=== PATIENT | female | born 1970 | race Caucasian/White ===

== ENCOUNTER 2016-09-01 05:41 | Emergency (ER) | payer MEDICAID ==
[2016-09-01] MEDS ORDERED: IBUPROFEN 600 MG TAB PO STA (07:00)
[2016-09-01] MEDS ORDERED: ACETAMINOPHEN TAB 325 MG TAB PO STA (07:00)
[2016-09-01] MEDS ORDERED: MAG HYDROX/AL HYDROX/SIMETH 30 ML CUP PO PRN (07:00)
[2016-09-01] MEDS ORDERED: OSELTAMIVIR 75 MG CAP PO STA (08:11)
[2016-09-01] MEDS ORDERED: DEXAMETHASONE SOD PHOSPHATE 10 MG/ML 1 ML VIAL IM STA (08:12)
--- NOTE | 2016-09-01 08:15 | ED ---
General Adult HPI - General Chief complaint: ENT Stated complaint: ENT/Sore Throat/Ear Pain Time Seen by Provider: 09/01/16 06:44 Source: patient, RN notes reviewed, old records reviewed Mode of arrival: ambulatory Limitations: no limitations - History of Present Illness Initial comments: This is a 46-year-old female here for evaluation of sore throat ear pain and not feeling well. Patient episodic fevers, no significant medical history no sick contacts no known travel history. No modifying factors at home for pain, patient is taking Motrin with mild help. No nausea vomiting diarrhea. The patient denies any other complaints. Patient symptoms for less than 2 days. - Related Data Home Medications Medication Instructions Recorded Confirmed Citalopram Hydrobromide [CeleXA] 20 mg PO HS 06/23/14 09/01/16 Lisinopril [Zestril] 2.5 mg PO HS 06/23/14 09/01/16 Previous Rx's Medication Instructions Recorded Oseltamivir [Tamiflu] 75 mg PO Q12HR #14 cap 09/01/16 Allergies Allergy/AdvReac Type Severity Reaction Status Date / Time lactose Allergy Unknown Abdominal Verified 06/23/14 15:09 Pain, Bloating cephalexin [From Keflex] AdvReac Nausea & Verified 09/01/16 05:55 Vomiting Review of Systems ROS Statement: Those systems with pertinent positive or pertinent negative responses have been documented in the HPI. ROS Other: All systems not noted in ROS Statement are negative. Past Medical History Past Medical History: Hypertension History of Any Multi-Drug Resistant Organisms: None Reported Past Surgical History: Tubal Ligation, Uterine Ablation Past Psychological History: Anxiety Smoking Status: Never smoker Past Alcohol Use History: None Reported Past Drug Use History: None Reported General Exam Limitations: no limitations General appearance: alert, in no apparent distress Head exam: Present: atraumatic, normocephalic, normal inspection Eye exam: Present: normal appearance, PERRL, EOMI. Absent: scleral icterus, conjunctival injection, periorbital swelling ENT exam: Present: normal exam, mucous membranes moist Neck exam: Present: normal inspection. Absent: tenderness, meningismus, lymphadenopathy Respiratory exam: Present: normal lung sounds bilaterally. Absent: respiratory distress, wheezes, rales, rhonchi, stridor Cardiovascular Exam: Present: regular rate, normal rhythm, normal heart sounds. Absent: systolic murmur, diastolic murmur, rubs, gallop, clicks GI/Abdominal exam: Present: soft, normal bowel sounds. Absent: distended, tenderness, guarding, rebound, rigid Extremities exam: Present: normal inspection, full ROM, normal capillary refill. Absent: tenderness, pedal edema, joint swelling, calf tenderness Back exam: Present: normal inspection Neurological exam: Present: alert, oriented X3, CN II-XII intact Psychiatric exam: Present: normal affect, normal mood Skin exam: Present: warm, dry, intact, normal color. Absent: rash Course Vital Signs 09/01/16 05:51 Temperature 99 F Pulse Rate 79 Respiratory 18 Rate Blood Pressure 136/80 O2 Sat by Pulse 98 Oximetry - Reevaluation(s) Reevaluation #1: 09/01/16 08:14 Patient consulted regarding positive flu. Medical Decision Making - Medical Decision Making Or if I female the ER for evaluation of sore throat cough congestion bodyaches fever, patient does have positive influenza otherwise physical exam is negative. Patient will be prescribed some control Motrin Tylenol and Tamiflu. - Lab Data Lab Results 09/01/16 09/01/16 Range/Units 06:05 06:56 Influenza Type A RNA Not Detected (Not Detectd) Influenza Type B (PCR) Detected H (Not Detectd) Group A Strep Rapid Negative (Negative) Disposition Clinical Impression: Influenza B Disposition: HOME SELF-CARE Condition: Good Instructions: Influenza (ED) Prescriptions: Oseltamivir [Tamiflu] 75 mg PO Q12HR #14 cap Referrals: Esperanza Lewis MD [Primary Care Provider] - 1-2 days
[2016-09-01 08:22] VITALS: BP 138/91; PULSE 71; RESP 16; TEMP 98.2
== END 2016-09-01 08:27 | disposition home or self-care (01) ==
LOC: EC 05:41
DX: J10.1 Influenza due to other identified influenza virus with other respiratory manifestations (principal); I10 Essential (primary) hypertension; F41.9 Anxiety disorder, unspecified; Z79.899 Other long term (current) drug therapy; Z88.1 Allergy status to other antibiotic agents; Z91.011 Allergy to milk products
CPT/HCPCS: 87081; 87430; 87502; 99283; 96372; J1100

== ENCOUNTER → 2016-11-30 | Outpatient (CLI) | payer MEDICAID ==
--- NOTE | 2016-11-30 11:18 | US ---
EXAMINATION TYPE: US gallbladder DATE OF EXAM: 11/30/2016 11:06 AM COMPARISON: NONE CLINICAL HISTORY: RUQ Abd Pain R10.11. EXAM MEASUREMENTS: Liver Length: 12.5 cm Gallbladder Wall: 0.2 cm CBD: 0.3 cm Right Kidney: 10.5 X 3.5 X 4.9 cm Pancreas: visualized portions wnl Liver: wnl Gallbladder: 2 polyps seen adhered do wall measuring 0.5 cm each Evidence for sonographic Cole's sign: No CBD: wnl Right Kidney: No hydronephrosis or masses seen IMPRESSION: 1. Echogenic nonmobile structures within the gallbladder most typical of gallbladder polyp. No wall t hickening or pericholecystic fluid.
== END | disposition home or self-care (01) ==
LOC: RADUSWWP 10:42
PROVIDERS: ATTEND Surgery
DX: R93.3 Abnormal findings on diagnostic imaging of other parts of digestive tract (principal); R10.11 Right upper quadrant pain
CPT/HCPCS: 76705

== ENCOUNTER → 2016-12-08 | Outpatient (CLI) | payer MEDICAID ==
--- NOTE | 2016-12-08 15:09 | NM ---
EXAMINATION TYPE: NM hepatobiliary w EF DATE OF EXAM: 12/08/2016 COMPARISON: NONE HISTORY: Right upper quadrant pain TECHNIQUE: After the intravenous administration of 5.5 mCi Tc 99m Mebrofenin hepatobiliary scintigrap hy is performed. Immediate images post injection. FINDINGS: There is satisfactory initial accumulation of tracer by the liver. The gallbladder is visualized wit hin 4 minutes. The small bowel activity was not evident until after the administration of CCK. At on e hour 8 ounces of oral ensure plus is given to mimic CCK and gallbladder ejection fraction is calcul ated at 43 %, in the normal range. Therefore there is no scintigraphic evidence of cystic or common bile duct obstruction to suggest acute cholecystitis or gallbladder dyskinesia. IMPRESSION: AMBIGUOUS EXAMINATION. I COULD NOT EXCLUDE A PARTIAL DISTAL CYSTIC OR COMMON DUCT OBSTRUCTION. ERCP V ERSUS MRCP WOULD BE SUGGESTED.
== END | disposition home or self-care (01) ==
LOC: RADNMMAIN 12:52
PROVIDERS: ATTEND Surgery
DX: R10.11 Right upper quadrant pain (principal); R10.84 Generalized abdominal pain
CPT/HCPCS: 78226; A9537

== ENCOUNTER → 2016-12-19 | Outpatient (CLI) | payer MEDICAID ==
[2016-12-19 13:08] LABS: Basophils # (A) 0.1 k/uL (0-0.2); Basophils % (A) 1 %; CH 29.5; CHCM 33.5; Eosinophils # (A) 0.2 k/uL (0-0.7); Eosinophils % (A) 2 %; HCT 37.1 % (34.0-46.0); HDW 2.34; HGB 12.5 gm/dL (11.4-16.0); Luc # (Auto) 0.21; Luc % (Auto) 2; Lymphocytes # (A) 2.4 k/uL (1.0-4.8); Lymphocytes % (A) 28 %; MCH 29.8 pg (25.0-35.0); MCHC 33.8 g/dL (31.0-37.0); MCV 88.4 fL (80.0-100.0); Mean Platelet Volume 6.9; Monocytes # (A) 0.5 k/uL (0-1.0); Monocytes % (A) 6 %; Neutrophils # (A) 5.3 k/uL (1.3-7.7); Neutrophils % (A) 61 %; RDW 13.6 % (11.5-15.5); WBC 8.7 k/uL (3.8-10.6); WBC (Perox) 9.21
[2016-12-19 13:24] LABS: ALT 75 U/L (9-52); AST 37 U/L (14-36); Alkaline Phosphatase 141 U/L (38-126); Amylase 55 U/L (30-110); Anion Gap 12 mmol/L; Blood Urea Nitrogen 14 mg/dL (7-17); Calcium 9.7 mg/dL (8.4-10.2); Carbon Dioxide 25 mmol/L (22-30); Chloride 106 mmol/L (98-107); Glucose 91 mg/dL (74-99); Non-African American GFR(MDRD) >60 (>60 ml/min/1.73 sqM); Potassium 3.9 mmol/L (3.5-5.1); Sodium 143 mmol/L (137-145); Total Bilirubin 0.5 mg/dL (0.2-1.3); Total Protein 7.8 g/dL (6.3-8.2)
== END | disposition home or self-care (01) ==
LOC: LABWHC1 12:56
PROVIDERS: ATTEND Surgery
DX: R10.9 Unspecified abdominal pain (principal)
CPT/HCPCS: 36415; 80053; 82150; 83690; 85025

== ENCOUNTER → 2017-08-02 | Outpatient (CLI) | payer MEDICAID ==
[2017-08-02 09:15] LABS: ALT 37 U/L (9-52); AST 18 U/L (14-36); Albumin 4.1 g/dL (3.5-5.0); Alkaline Phosphatase 113 U/L (38-126); Anion Gap 11 mmol/L; Blood Urea Nitrogen 10 mg/dL (7-17); Calcium 9.5 mg/dL (8.4-10.2); Carbon Dioxide 25 mmol/L (22-30); Chloride 107 mmol/L (98-107); Cholesterol 214 mg/dL (<200); Glucose 104 mg/dL (74-99); HDL Cholesterol 50 mg/dL (40-60); LDL Cholesterol,Calculated 137 mg/dL (0-99); Potassium 4.2 mmol/L (3.5-5.1); Sodium 143 mmol/L (137-145); Total Bilirubin 0.3 mg/dL (0.2-1.3); Total Protein 7.2 g/dL (6.3-8.2); Triglycerides 137 mg/dL (<150)
[2017-08-02 09:17] LABS: T4, Free (Free Thyroxine) 0.78 ng/dL (0.78-2.19)
[2017-08-02 09:19] LABS: Basophils # (A) 0.1 k/uL (0-0.2); Basophils % (A) 1 %; Eosinophils # (A) 0.1 k/uL (0-0.7); Eosinophils % (A) 1 %; HCT 40.1 % (34.0-46.0); Lymphocytes # (A) 2.3 k/uL (1.0-4.8); Lymphocytes % (A) 21 %; MCH 28.7 pg (25.0-35.0); MCHC 32.5 g/dL (31.0-37.0); MCV 88.3 fL (80.0-100.0); Mean Platelet Volume 7.5; Monocytes # (A) 0.5 k/uL (0-1.0); Monocytes % (A) 5 %; Neutrophils # (A) 7.9 k/uL (1.3-7.7); Neutrophils % (A) 71 %; Platelet Count 421 k/uL (150-450); RBC 4.54 m/uL (3.80-5.40); RDW 12.8 % (11.5-15.5)
[2017-08-02 16:39] LABS: Vitamin D 25 Hydroxy 11.2 ng/mL (30.0-100.0)
== END | disposition home or self-care (01) ==
LOC: LABWHC1 07:59
PROVIDERS: ATTEND Family Medicine
DX: E55.9 Vitamin D deficiency, unspecified (principal); I10 Essential (primary) hypertension; Z13.220 Encounter for screening for lipoid disorders
CPT/HCPCS: 36415; 80053; 80061; 82306; 82607; 84439; 84443; 85025

== ENCOUNTER → 2017-09-22 | Outpatient (CLI) | payer MEDICAID ==
[2017-09-22 07:41] LABS: Basophils # (A) 0.1 k/uL (0-0.2); Basophils % (A) 1 %; Eosinophils # (A) 0.2 k/uL (0-0.7); Eosinophils % (A) 3 %; HCT 35.6 % (34.0-46.0); HGB 11.9 gm/dL (11.4-16.0); Lymphocytes # (A) 2.3 k/uL (1.0-4.8); Lymphocytes % (A) 33 %; MCH 28.2 pg (25.0-35.0); MCHC 33.4 g/dL (31.0-37.0); MCV 84.5 fL (80.0-100.0); Monocytes # (A) 0.4 k/uL (0-1.0); Monocytes % (A) 5 %; Neutrophils # (A) 3.9 k/uL (1.3-7.7); Neutrophils % (A) 56 %; Platelet Count 444 k/uL (150-450); RBC 4.21 m/uL (3.80-5.40); RDW 12.9 % (11.5-15.5)
[2017-09-22 08:54] LABS: Anion Gap 8 mmol/L; Blood Urea Nitrogen 14 mg/dL (7-17); Calcium 9.9 mg/dL (8.4-10.2); Carbon Dioxide 27 mmol/L (22-30); Chloride 107 mmol/L (98-107); Glucose 104 mg/dL (74-99); Magnesium 1.9 mg/dL (1.6-2.3); Potassium 4.6 mmol/L (3.5-5.1); Sodium 142 mmol/L (137-145)
[2017-09-22 11:36] LABS: Iron Saturation 28.97 (12.00-45.00); Protein, Total 6.9 g/dL (6.2-8.2)
[2017-09-22 11:55] LABS: Progesterone 0.3 ng/mL; Thyroid Peroxidase Antibodies <28.0 U/mL (0.0-60.0)
[2017-09-26 09:56] LABS: Albumin 4.23 g/dL (3.80-4.90); Gamma Globulin 0.93 g/dL (0.70-1.50)
== END | disposition home or self-care (01) ==
LOC: LABWHC1 06:58
PROVIDERS: ATTEND Family Medicine
DX: J01.00 Acute maxillary sinusitis, unspecified (principal); R53.82 Chronic fatigue, unspecified
CPT/HCPCS: 36415; 80048; 82533; 82626; 83001; 83002; 83036; 83540; 83550; 83735; 84144; 84165; 84443; 84480; 85025; 86376

== ENCOUNTER → 2017-10-11 | Outpatient (CLI) | payer MEDICAID ==
--- NOTE | 2017-10-11 08:18 | MM ---
Reason for exam: screening (asymptomatic). Baseline mammogram. History: Patient is postmenopausal. Took hormonal contraceptives for 6 months beginning at age 19. Physical Findings: Nurse did not find any significant physical abnormalities on exam. MG 3D Screening Mammo W/Cad Bilateral CC and MLO view(s) were taken. The breast tissue is heterogeneously dense. This may lower the sensitivity of mammography. There is no discrete abnormality. These results were verbally communicated with the patient and result sheet given to the patient on 10/11/17. ASSESSMENT: Negative, BI-RAD 1 RECOMMENDATION: Routine screening mammogram of both breasts in 1 year.
== END | disposition home or self-care (01) ==
LOC: RADMAMWWP 06:44
PROVIDERS: ATTEND Family Medicine
DX: Z12.31 Encounter for screening mammogram for malignant neoplasm of breast (principal)
CPT/HCPCS: 77063; 77067

== ENCOUNTER 2018-08-31 06:47 | Inpatient (IN) | payer MEDICAID ==
[2018-08-31] MEDS ORDERED: HYDROmorphone 0.5 MG/0.5 ML SYRINGE IVP STA (07:12)
[2018-08-31] MEDS ORDERED: SODIUM CHLORIDE 0.9% 500 ML 500 ML IV STA (07:12)
[2018-08-31] MEDS: ONDANSETRON 4 MG/2 ML VIAL IVP STA (07:29)
--- NOTE | 2018-08-31 07:29 | ED ---
General Adult HPI - General Chief complaint: Abdominal Pain Stated complaint: Abd Pain Source: patient, RN notes reviewed Mode of arrival: ambulatory Limitations: no limitations - History of Present Illness Initial comments: This is a 48-year-old female who presents to the emergency department complaining of epigastric and right upper quadrant pain. Patient states she's had issues with her gallbladder in the past but this morning was the worst pain she's had in that area. Patient states she started drinking coffee and that seemed to set off the pain. Patient states she was nauseated but did not vomit. Patient denies any recent fever chills. Patient denies any lower abdominal pain. Patient denies chest pain difficulty breathing first breath. Patient states currently the pain is still there but it has subsided to some degree. Denies any radiation of pain to the back. - Related Data Home Medications Medication Instructions Recorded Confirmed Ibuprofen [Motrin] 800 mg PO TID PRN 08/31/18 08/31/18 Lisinopril [Zestril] 10 mg PO HS 08/31/18 08/31/18 Allergies Allergy/AdvReac Type Severity Reaction Status Date / Time lactose AdvReac Unknown Abdominal Verified 08/31/18 07:35 Pain, Bloating cephalexin [From Keflex] AdvReac Nausea & Verified 08/31/18 07:35 Vomiting Review of Systems ROS Statement: Those systems with pertinent positive or pertinent negative responses have been documented in the HPI. ROS Other: All systems not noted in ROS Statement are negative. Past Medical History Past Medical History: Hypertension History of Any Multi-Drug Resistant Organisms: None Reported Past Surgical History: Tubal Ligation, Uterine Ablation Past Psychological History: Anxiety Smoking Status: Never smoker Past Alcohol Use History: None Reported Past Drug Use History: None Reported General Exam - General Exam Comments Initial Comments: GENERAL: Patient is well-developed and well-nourished. Patient is nontoxic and well- hydrated and is in mild distress. ENT: Neck is soft and supple. No significant lymphadenopathy is noted. Oropharynx is clear. Moist mucous membranes. Neck has full range of motion without eliciting any pain. EYES: The sclera were anicteric and conjunctiva were pink and moist. Extraocular movements were intact and pupils were equal round and reactive to light. Eyelids were unremarkable. PULMONARY: Unlabored respirations. Good breath sounds bilaterally. No audible rales rhonchi or wheezing was noted. CARDIOVASCULAR: There is a regular rate and rhythm without any murmurs gallops or rubs. ABDOMEN: Patient has tenderness and right upper quadrant. No rebound. SKIN: Skin is clear with no lesions or rashes and otherwise unremarkable. NEUROLOGIC: Patient is alert and oriented x3. Cranial nerves II through XII are grossly intact. Motor and sensory are also intact. Normal speech, volume and content. Symmetrical smile. MUSCULOSKELETAL: Normal extremities with adequate strength and full range of motion. No lower extremity swelling or edema. No calf tenderness. LYMPHATICS: No significant lymphadenopathy is noted PSYCHIATRIC: Normal psychiatric evaluation. Limitations: no limitations Course Vital Signs 08/31/18 06:48 Temperature 97.5 F L Pulse Rate 79 Respiratory 16 Rate Blood Pressure 139/89 O2 Sat by Pulse 100 Oximetry Medical Decision Making - Medical Decision Making Patient had Dilaudid and Zofran in the emergency department and after administration I reevaluated the patient and she was feeling considerably better. Patient's liver enzymes were mildly elevated. Patient cannot fully better showed a polyp and some adenomyomatosis. I spoke with Dr. Llamas he agreed to accept the patient as an admission I wrote admitting orders. - Lab Data Result diagrams: 08/31/18 07:05 08/31/18 07:05 Lab Results 08/31/18 08/31/18 08/31/18 Range/Units 07:05 07:05 07:05 WBC 10.3 (3.8-10.6) k/uL RBC 4.28 (3.80-5.40) m/uL Hgb 12.5 (11.4-16.0) gm/dL Hct 38.0 (34.0-46.0) % MCV 88.7 (80.0-100.0) fL MCH 29.2 (25.0-35.0) pg MCHC 32.9 (31.0-37.0) g/dL RDW 13.8 (11.5-15.5) % Plt Count 470 H (150-450) k/uL Neutrophils % 64 % Lymphocytes % 26 % Monocytes % 5 % Eosinophils % 3 % Basophils % 1 % Neutrophils # 6.6 (1.3-7.7) k/uL Lymphocytes # 2.7 (1.0-4.8) k/uL Monocytes # 0.5 (0-1.0) k/uL Eosinophils # 0.3 (0-0.7) k/uL Basophils # 0.1 (0-0.2) k/uL Sodium 142 (137-145) mmol/L Potassium 4.1 (3.5-5.1) mmol/L Chloride 107 (98-107) mmol/L Carbon Dioxide 25 (22-30) mmol/L Anion Gap 10 mmol/L BUN 11 (7-17) mg/dL Creatinine 0.72 (0.52-1.04) mg/dL Est GFR (CKD-EPI)AfAm >90 (>60 ml/min/1.73 sqM) Est GFR (CKD-EPI)NonAf >90 (>60 ml/min/1.73 sqM) Glucose 113 H (74-99) mg/dL Calcium 9.7 (8.4-10.2) mg/dL Total Bilirubin 0.5 (0.2-1.3) mg/dL AST 41 H (14-36) U/L ALT 68 H (9-52) U/L Alkaline Phosphatase 142 H (38-126) U/L Total Protein 7.7 (6.3-8.2) g/dL Albumin 4.5 (3.5-5.0) g/dL Amylase 61 (30-110) U/L Lipase 100 (23-300) U/L Urine Color Yellow Urine Appearance Clear (Clear) Urine pH 5.5 (5.0-8.0) Ur Specific [place] 1.018 (1.001-1.035) Urine Protein Negative (Negative) Urine Glucose (UA) Negative (Negative) Urine Ketones Negative (Negative) Urine Blood Negative (Negative) Urine Nitrite Negative (Negative) Urine Bilirubin Negative (Negative) Urine Urobilinogen <2.0 (<2.0) mg/dL Ur Leukocyte Esterase Negative (Negative) Disposition Clinical Impression: Biliary colic Disposition: ADMITTED IP TO THIS HOSP Referrals: Esperanza Lewis MD [Primary Care Provider] - 1-2 days Time of Disposition: 08:56
[2018-08-31 07:34] LABS: Basophils # (A) 0.1 k/uL (0-0.2); Basophils % (A) 1 %; Eosinophils # (A) 0.3 k/uL (0-0.7); Eosinophils % (A) 3 %; HGB 12.5 gm/dL (11.4-16.0); Lymphocytes # (A) 2.7 k/uL (1.0-4.8); Lymphocytes % (A) 26 %; MCH 29.2 pg (25.0-35.0); MCHC 32.9 g/dL (31.0-37.0); MCV 88.7 fL (80.0-100.0); Mean Platelet Volume 7.3; Monocytes # (A) 0.5 k/uL (0-1.0); Monocytes % (A) 5 %; Neutrophils # (A) 6.6 k/uL (1.3-7.7); Neutrophils % (A) 64 %; Platelet Count 470 k/uL (150-450); RBC 4.28 m/uL (3.80-5.40); RDW 13.8 % (11.5-15.5); WBC 10.3 k/uL (3.8-10.6)
[2018-08-31 07:36] LABS: Appearance,Urine Clear (Clear); Bilirubin,Urine Negative (Negative); Blood,Urine Negative (Negative); Color,Urine Yellow; Glucose,Urine (UA) Negative (Negative); Ketones,Urine Negative (Negative); Leukocyte Esterase,Urine Negative (Negative); Nitrite,Urine Negative (Negative); PH, Urine 5.5 (5.0-8.0); Protein,Urine Negative (Negative); Specific Gravity,Urine 1.018 (1.001-1.035); Urobilinogen,Urine <2.0 mg/dL (<2.0)
[2018-08-31 07:48] LABS: ALT 68 U/L (9-52); AST 41 U/L (14-36); Albumin 4.5 g/dL (3.5-5.0); Alkaline Phosphatase 142 U/L (38-126); Amylase 61 U/L (30-110); Anion Gap 10 mmol/L; Blood Urea Nitrogen 11 mg/dL (7-17); Calcium 9.7 mg/dL (8.4-10.2); Carbon Dioxide 25 mmol/L (22-30); Chloride 107 mmol/L (98-107); Glucose 113 mg/dL (74-99); Lipase 100 U/L (23-300); Potassium 4.1 mmol/L (3.5-5.1); Sodium 142 mmol/L (137-145); Total Bilirubin 0.5 mg/dL (0.2-1.3); Total Protein 7.7 g/dL (6.3-8.2)
--- NOTE | 2018-08-31 08:43 | US ---
EXAMINATION TYPE: US gallbladder DATE OF EXAM: 08/31/2018 COMPARISON: EXAMINATION TYPE: US gallbladder DATE OF EXAM: 08/31/2018 COMPARISON: 11/30/2016 CLINICAL HISTORY: Pain. unable to eat or drink due to pain, known polyps EXAM MEASUREMENTS: Liver Length: 14.4 cm Gallbladder Wall: 0.2 cm CBD: 0.5 cm Right Kidney: 10.6 x 4.7 x 4.0 cm Pancreas: wnl Liver: There is increased echogenicity of the hepatic parenchyma with diminished visualization of th e portal triads most commonly relating to hepatic steatosis and limiting evaluation for underlying he patic masses. Gallbladder: multiple polyps seen with two areas of vague comet tail artifact which may represent ad enomyomatosis Evidence for sonographic Cole's sign: no CBD: wnl Right Kidney: wnl IMPRESSION: 1. Redemonstration of a subcentimeter nondependent nondependent gallbladder polyp as seen on the exam of 2016 with additional findings of likely diffuse adenomyomatosis. 2. No sonographic evidence of acute cholecystitis. 3. Findings most suggestive of hepatic steatosis overall appearing moderate in degree.
[2018-08-31] MEDS ORDERED: SODIUM CHLORIDE 0.9% 1,000 ML IV ONE (08:58)
[2018-08-31] MEDS ORDERED: ONDANSETRON 4 MG/2 ML VIAL IVP PRN (08:59)
[2018-08-31 09:32] VITALS: BMI 29.7
[2018-08-31 09:50] VITALS: RESP 16
[2018-08-31] MEDS ORDERED: NALOXONE 0.4 MG/ML 1 ML VIAL IV PRN (10:11)
--- NOTE | 2018-08-31 10:48 | P.GSHP ---
History of Present Illness H&P Date: 08/31/18 Chief Complaint: Abdominal pain 48-year-old female comes to the ER today with recurrent complaints of epigastric and right upper quadrant pain. Pain radiates to the back. Some nausea. She has had episodes like this in the past. Today's labs show slightly elevated liver enzymes. Ultrasound shows filling defects within the gallbladder described as probable polyps. Patient has a strong family history of gallbladder disease. Describes her urine being slightly darker. No yellow skin or yellow eyes. Patient's previous workup included ultrasound and HIDA scan. HIDA scan was normal when checked previously. - Review of Systems Comment: The patient denies any acute changes in vision or hearing, no dysphagia or odynophagia, no chest pain or shortness of breath, no dysuria or hematuria, no headache, no runny nose, no rectal bleeding or melena, no unexplained weight loss Past Medical History Past Medical History: Asthma, GERD/Reflux, Hypertension Additional Past Medical History / Comment(s): Gallbladder polyps, current sinus infection-was to start antibiotics, vertigo, anemia History of Any Multi-Drug Resistant Organisms: None Reported Past Surgical History: Tubal Ligation, Uterine Ablation Past Anesthesia/Blood Transfusion Reactions: No Reported Reaction Smoking Status: Never smoker - Past Family History Father Family Medical History: Hypertension Mother Additional Family Medical History / Comment(s): Mother had gallstones. Gallbladder disease runs on mother's side of family. Medications and Allergies Home Medications Medication Instructions Recorded Confirmed Type Ibuprofen [Motrin] 800 mg PO TID PRN 08/31/18 08/31/18 History Lisinopril [Zestril] 10 mg PO HS 08/31/18 08/31/18 History Allergies Allergy/AdvReac Type Severity Reaction Status Date / Time lactose AdvReac Unknown Abdominal Verified 08/31/18 07:35 Pain, Bloating cephalexin [From Keflex] AdvReac Nausea & Verified 08/31/18 07:35 Vomiting Surgical - Exam Vital Signs Temp Pulse Resp BP Pulse Ox 97.5 F L 79 16 139/89 100 08/31/18 06:48 08/31/18 06:48 08/31/18 06:48 08/31/18 06:48 08/31/18 06:48 Physical exam: General: Well-developed, well-nourished HEENT: Normocephalic, sclerae nonicteric Abdomen: Mild epigastric and right upper quadrant tenderness, nondistended Extremities: No edema Neuro: Alert and oriented Results - Labs 08/31/18 07:05 08/31/18 07:05 Abnormal Lab Results - Last 24 Hours (Table) 08/31/18 08/31/18 Range/Units 07:05 07:05 Plt Count 470 H (150-450) k/uL Glucose 113 H (74-99) mg/dL AST 41 H (14-36) U/L ALT 68 H (9-52) U/L Alkaline Phosphatase 142 H (38-126) U/L Diabetes panel 08/31/18 Range/Units 07:05 Sodium 142 (137-145) mmol/L Potassium 4.1 (3.5-5.1) mmol/L Chloride 107 (98-107) mmol/L Carbon Dioxide 25 (22-30) mmol/L BUN 11 (7-17) mg/dL Creatinine 0.72 (0.52-1.04) mg/dL Glucose 113 H (74-99) mg/dL Calcium 9.7 (8.4-10.2) mg/dL AST 41 H (14-36) U/L ALT 68 H (9-52) U/L Alkaline Phosphatase 142 H (38-126) U/L Total Protein 7.7 (6.3-8.2) g/dL Albumin 4.5 (3.5-5.0) g/dL Calcium panel 08/31/18 Range/Units 07:05 Calcium 9.7 (8.4-10.2) mg/dL Albumin 4.5 (3.5-5.0) g/dL Pituitary panel 08/31/18 Range/Units 07:05 Sodium 142 (137-145) mmol/L Potassium 4.1 (3.5-5.1) mmol/L Chloride 107 (98-107) mmol/L Carbon Dioxide 25 (22-30) mmol/L BUN 11 (7-17) mg/dL Creatinine 0.72 (0.52-1.04) mg/dL Glucose 113 H (74-99) mg/dL Calcium 9.7 (8.4-10.2) mg/dL Adrenal panel 08/31/18 Range/Units 07:05 Sodium 142 (137-145) mmol/L Potassium 4.1 (3.5-5.1) mmol/L Chloride 107 (98-107) mmol/L Carbon Dioxide 25 (22-30) mmol/L BUN 11 (7-17) mg/dL Creatinine 0.72 (0.52-1.04) mg/dL Glucose 113 H (74-99) mg/dL Calcium 9.7 (8.4-10.2) mg/dL Total Bilirubin 0.5 (0.2-1.3) mg/dL AST 41 H (14-36) U/L ALT 68 H (9-52) U/L Alkaline Phosphatase 142 H (38-126) U/L Total Protein 7.7 (6.3-8.2) g/dL Albumin 4.5 (3.5-5.0) g/dL Assessment and Plan (1) Biliary colic Narrative/Plan: Clinical scenario discussed in detail with the patient. Suspect probable chronic cholecystitis. Will check repeat labs tomorrow morning. If liver enzymes increase further Will consider MRCP. If liver enzymes status same or decreased Will proceed with laparoscopic cholecystectomy tomorrow at 10 AM. Risks of bleeding, infection, bile leak, bile duct injury, retained common bile duct stone, trocar injury, conversion to an open procedure, hernia, anesthesia related complications were reviewed. The patient understands and wishes to proceed. Current Visit: Yes Status: Acute Code(s): K80.50 - CALCULUS OF BILE DUCT W/ O CHOLANGITIS OR CHOLECYST W/O OBST SNOMED Code(s): 79486032
[2018-08-31] MEDS: HYDROmorphone 0.5 MG/0.5 ML SYRINGE IVP PRN ×2 (13:04→19:16)
[2018-08-31] MEDS: LEVOFLOXACIN 500MG-D5W PMX 500 MG in DEXTROSE/WATER 1 100ML.BAG IVPB SCH (13:04)
[2018-08-31] MEDS: HEPARIN SODIUM,PORCINE 5,000 UNIT/ML 1 ML VIAL SQ SCH ×2 (16:39→23:14)
[2018-08-31] MEDS: LISINOPRIL 10 MG TAB PO SCH (19:55)
--- NOTE | 2018-08-31 20:09 | P.CONS ---
History of Present Illness - Reason for Consult Consult date: 08/31/18 Medical management Requesting physician: Kush Tavarez - Chief Complaint Severe abdominal pain, cholecystitis and biliary colic, nausea vomiting, hy - History of Present Illness 48-year-old female one of Dr. Lewis's patient with past medical history of asthma, hypertension, history of chronic gallbladder, history of GERD who presented to [facility] this morning with acute episode of midepigastric pain and right upper quadrant discomfort after she had couple of coffee in the morning become much worse was associated with nausea and vomiting her pain is radiating to the back. Patient is known to have chronic history of gallbladder and had seen Dr. pena in the past was planning to do elective surgery as an outpatient. A Chin ended up coming to [facility] department found to have significant elevated liver function tests and finding on ultrasound with possible polyp in the gallbladder versus stone with the possibility of ascending cholangitis as well. Patient was started on hydration, antiarrhythmic medication, levofloxacin IV to protect ascending cholangitis and was admitted to the hospital seen Dr. pena. The plan was if repeat liver function test in 24 hours shows improve symptoms patient might go for gallbladder surgery otherwise if worsening symptoms she might require to have an MRCP or ERCP to exclude any stone in the common duct or any obstruction might require further attention. Review of Systems CONSTITUTIONAL: Well-developed no acute respiratory distress. EYES: No icterus sclerae, no conjunctivitis. EARS, NOSE, MOUTH, THROAT, and FACE: No sore throat, lymphadenopathy, carotid bruits or deformity. RESPIRATORY: No SOB cough or wheezes. CARDIOVASCULAR: No CP, Palpitation, PND, Orthopnea, or angina. GASTROINTESTINAL: Positive abdominal pain with nausea and vomiting. GENITOURINARY: Negative for Hematuria or UTI, no kidney stones. INTEGUMENT/BREAST: Negative for any muscular injury with mild osteoarthritis.. HEMATOLOGIC/LYMPHATIC: Negative for bleed or purpura. MUSCULOSKELTAL: Negative for Myalgia or arthralgia. NEURLOGICAL: No LOC, Sz or syncope, blurred vision dizziness or abnormality.. BEHAVIORAL/PSYCH: Negative. ENDOCRINE: Negative. Past Medical History Past Medical History: Asthma, GERD/Reflux, Hypertension Additional Past Medical History / Comment(s): Gallbladder polyps, current sinus infection-was to start antibiotics, vertigo, anemia History of Any Multi-Drug Resistant Organisms: None Reported Past Surgical History: Tubal Ligation, Uterine Ablation Past Anesthesia/Blood Transfusion Reactions: No Reported Reaction Smoking Status: Never smoker - Past Family History Father Family Medical History: Hypertension Mother Additional Family Medical History / Comment(s): Mother had gallstones. Gallbladder disease runs on mother's side of family. Medications and Allergies Home Medications Medication Instructions Recorded Confirmed Type Ibuprofen [Motrin] 800 mg PO TID PRN 08/31/18 08/31/18 History Lisinopril [Zestril] 10 mg PO HS 08/31/18 08/31/18 History Allergies Allergy/AdvReac Type Severity Reaction Status Date / Time lactose AdvReac Unknown Abdominal Verified 08/31/18 07:35 Pain, Bloating cephalexin [From Keflex] AdvReac Nausea & Verified 08/31/18 07:35 Vomiting Physical Exam Vitals: Vital Signs Temp Pulse Pulse Resp BP BP Pulse Ox 08/31/18 14:27 98.0 F 84 16 111/73 98 08/31/18 09:49 97.6 F 68 16 145/97 100 08/31/18 09:27 73 18 101/65 100 08/31/18 06:48 97.5 F L 79 16 139/89 100 Intake and Output 08/31/18 08/31/18 08/31/18 06:59 14:59 22:59 Intake Total 240 Output Total 1 Balance -1 240 Intake: Oral 240 Output: Urine 1 Other: Voiding Method Toilet Weight 68.946 kg General Appearance: Alert, cooperative, no distress, appears stated age. Neck HEENT: Supple, no lymphadenopathy, no thyroid enlargement, no carotid bruits. Lungs: Clear to auscultation without crackles or wheezes no rhonchi, no deformity. Chest Wall: Chest wall normal expansion with deep inspiration no tenderness and no deformity was found on exam, no costochondral pain or discomfort. Heart: Regular rate and rhythm, S1, S2 normal, no murmur, rub or gallop. Back: Symmetric, no curvature, ROM normal, no CVA tenderness. Abdomen: Soft positive tenderness in the right upper quadrant and midepigastric area with no rebound or rigidity no hepatosplenomegaly. Extremities: Extremities normal, atraumatic, no cyanosis or edema. Pulses: 2+ and symmetric. Skin: Skin color, texture, tugor normal, no rashes or lesions. Neurologic: Alert oriented x3 cranial nerves II through XII intact, no motor deficit, no abnormal balance or gait. Results CBC & Chem 7: 08/31/18 07:05 08/31/18 07:05 Labs: Abnormal Lab Results - Last 24 Hours (Table) 08/31/18 08/31/18 Range/Units 07:05 07:05 Plt Count 470 H (150-450) k/uL Glucose 113 H (74-99) mg/dL AST 41 H (14-36) U/L ALT 68 H (9-52) U/L Alkaline Phosphatase 142 H (38-126) U/L Assessment and Plan Plan: 1 acute severe abdominal pain: With acute biliary colic and possible ascending cholangitis, patient was admitted to the hospital continue levofloxacin continue hydration pain management and anti-medic medication. If worsening symptoms or higher liver function tests might require to go for an MRCP or ERCP otherwise if her enzymes are better patient might go for gallbladder surgery tomorrow. 2 acute cholecystitis: Pending surgery depending on the progression in the next 24 hours. 3 ascending cholangitis: Was started on levofloxacin CBC and continue to watch for any other sign of infection such as fever chills are worsening leukocytosis. 4 hypertension: Resume lisinopril at 10 mg daily. 5 severe GERD/GI prophylaxis: Patient was started on pantoprazole 40 mg daily. DVT prophylaxis: Patient will be on heparin 5000 units subcutaneous twice a day. CODE STATUS: Full code. Dr. tavarez thank you very much for the consult psych can be any further help to please let me know.
[2018-09-01 07:34] LABS: Basophils # (A) 0.1 k/uL (0-0.2); Basophils % (A) 1 %; Eosinophils # (A) 0.2 k/uL (0-0.7); Eosinophils % (A) 2 %; HCT 35.2 % (34.0-46.0); Lymphocytes # (A) 1.9 k/uL (1.0-4.8); Lymphocytes % (A) 29 %; MCH 28.1 pg (25.0-35.0); MCHC 31.4 g/dL (31.0-37.0); MCV 89.7 fL (80.0-100.0); Mean Platelet Volume 7.2; Monocytes # (A) 0.4 k/uL (0-1.0); Monocytes % (A) 5 %; Neutrophils % (A) 61 %; Platelet Count 391 k/uL (150-450); RBC 3.93 m/uL (3.80-5.40); WBC 6.5 k/uL (3.8-10.6)
[2018-09-01] MEDS ORDERED: LIDOCAINE 1% 20 ML VIAL (10MG/ML) FOR IV START INTRADERMA PRN (07:34)
[2018-09-01] MEDS ORDERED: MIDAZOLAM (PF) 2 MG/2 ML VIAL IV PRN (07:34)
[2018-09-01] MEDS ORDERED: DEXAMETHASONE SOD PHOSPHATE 10 MG/ML 1 ML VIAL IV ONE (07:34)
[2018-09-01] MEDS: HYDROmorphone 0.5 MG/0.5 ML SYRINGE IVP PRN ×7 (07:49→23:19)
[2018-09-01] MEDS: PANTOPRAZOLE 40 MG/10 ML VIAL IV SCH (07:49)
[2018-09-01 07:55] LABS: ALT 64 U/L (9-52); AST 29 U/L (14-36); Albumin 3.6 g/dL (3.5-5.0); Alkaline Phosphatase 120 U/L (38-126); Anion Gap 4 mmol/L; Blood Urea Nitrogen 6 mg/dL (7-17); Calcium 9.4 mg/dL (8.4-10.2); Carbon Dioxide 28 mmol/L (22-30); Chloride 109 mmol/L (98-107); Glucose 111 mg/dL (74-99); Lipase 51 U/L (23-300); Potassium 4.6 mmol/L (3.5-5.1); Sodium 141 mmol/L (137-145); Total Bilirubin 0.5 mg/dL (0.2-1.3); Total Protein 6.5 g/dL (6.3-8.2)
[2018-09-01] MEDS: HEPARIN SODIUM,PORCINE 5,000 UNIT/ML 1 ML VIAL SQ SCH ×3 (08:17→23:20)
[2018-09-01] MEDS ORDERED: LACTATED RINGERS 1,000 ML IV ONE (10:00)
[2018-09-01] MEDS: ONDANSETRON 4 MG/2 ML VIAL IVP STA (10:13)
--- NOTE | 2018-09-01 10:27 | P.PN ---
Progress Note - Text Progress Note Date: 09/01/18 Patient seen today. Liver enzymes all improved. Pain is slightly improved as well. Will proceed with cholecystectomy. Suspect possible choledocholithiasis. Patient agreeable to proceeding with surgery.
[2018-09-01] MEDS ORDERED: ROCURONIUM BROMIDE 10 MG/ML 10 ML VIAL IV ONE (11:40)
[2018-09-01] MEDS ORDERED: GLYCOPYRROLATE 0.2 MG/ML 2 ML VIAL ONE (11:40)
[2018-09-01] MEDS ORDERED: NEOSTIGMINE 1 MG/ML 10 ML VIAL ONE (11:40)
[2018-09-01] MEDS ORDERED: LIDOCAINE 1% INJ 10MG/ML (20 ML MDV) ONE (11:40)
[2018-09-01] MEDS ORDERED: fentaNYL (PF) 50 MCG/ML 2 ML AMP ONE (11:40)
[2018-09-01] MEDS ORDERED: PROPOFOL 10 MG/ML 20 ML VIAL IV ONE (11:40)
[2018-09-01] MEDS ORDERED: BUPIVACAINE (PF) 0.25% 30 ML VIAL SQ ONE (12:04)
--- NOTE | 2018-09-01 12:09 | P.PN ---
Subjective Progress Note Date: 09/01/18 48-year-old female one of Dr. Lewis's patient with past medical history of asthma, hypertension, history of chronic gallbladder, history of GERD who presented to [facility] this morning with acute episode of midepigastric pain and right upper quadrant discomfort after she had couple of coffee in the morning become much worse was associated with nausea and vomiting her pain is radiating to the back. Patient is known to have chronic history of gallbladder and had seen Dr. pena in the past was planning to do elective surgery as an outpatient. A Chin ended up coming to [facility] department found to have significant elevated liver function tests and finding on ultrasound with possible polyp in the gallbladder versus stone with the possibility of ascending cholangitis as well. Patient was started on hydration, antiarrhythmic medication, levofloxacin IV to protect ascending cholangitis and was admitted to the hospital seen Dr. pena. The plan was if repeat liver function test in 24 hours shows improve symptoms patient might go for gallbladder surgery otherwise if worsening symptoms she might require to have an MRCP or ERCP to exclude any stone in the common duct or any obstruction might require further attention. 09/01: Patient is up in the room per self. Patient states that the discomfort has improved since yesterday. Liver enzymes have improved. Patient is scheduled for cholecystectomy possibly today. Patient is agreeable with the outlined plan. Patient still has some tenderness in the upper right quadrant. WC 6.5, hemoglobin 11, sodium 141, potassium 4.6, chloride 109, BUN 6, creatinine 0.68, bilirubin 0.5, AST 29, ALTs 64, a alkaline phosphatase 120 lipase 51. Review of Systems CONSTITUTIONAL: Well-developed no acute respiratory distress. EYES: No icterus sclerae, no conjunctivitis. EARS, NOSE, MOUTH, THROAT, and FACE: No sore throat, lymphadenopathy, carotid bruits or deformity. RESPIRATORY: No SOB cough or wheezes. CARDIOVASCULAR: No CP, Palpitation, PND, Orthopnea, or angina. GASTROINTESTINAL: Positive abdominal pain with nausea and no vomiting- improved. GENITOURINARY: Negative for Hematuria or UTI, no kidney stones. INTEGUMENT/BREAST: Negative for any muscular injury with mild osteoarthritis.. HEMATOLOGIC/LYMPHATIC: Negative for bleed or purpura. MUSCULOSKELTAL: Negative for Myalgia or arthralgia. NEURLOGICAL: No LOC, Sz or syncope, blurred vision dizziness or abnormality.. BEHAVIORAL/PSYCH: Negative. ENDOCRINE: Negative. Objective - Vital Signs Vital signs: Vital Signs Temp 97.8 F 09/01/18 07:00 Pulse 64 09/01/18 10:31 Resp 16 09/01/18 10:31 BP 101/68 09/01/18 10:31 Pulse Ox 100 09/01/18 10:31 Intake & Output 08/31/18 09/01/18 09/01/18 18:59 06:59 18:59 Intake Total 240 600 Output Total 1 Balance 239 600 Intake: Intake, IV Titration 600 Amount Sodium Chloride 0.9% 1, 600 000 ml @ 75 mls/hr IV . [id number] ONE Rx#:[id number] Oral 240 Output: Urine 1 Other: Voiding Method Toilet Toilet Toilet # Voids 2 1 - Exam General Appearance: Alert, cooperative, no distress, appears stated age. Neck HEENT: Supple, no lymphadenopathy, no thyroid enlargement, no carotid bruits. Lungs: Clear to auscultation without crackles or wheezes no rhonchi, no deformity. Chest Wall: Chest wall normal expansion with deep inspiration no tenderness and no deformity was found on exam, no costochondral pain or discomfort. Heart: Regular rate and rhythm, S1, S2 normal, no murmur, rub or gallop. Back: Symmetric, no curvature, ROM normal, no CVA tenderness. Abdomen: Soft positive tenderness in the right upper quadrant and midepigastric area with no rebound or rigidity no hepatosplenomegaly. Extremities: Extremities normal, atraumatic, no cyanosis or edema. Pulses: 2+ and symmetric. Skin: Skin color, texture, tugor normal, no rashes or lesions. Neurologic: Alert oriented x3 cranial nerves II through XII intact, no motor deficit, no abnormal balance or gait. - Labs CBC & Chem 7: 09/01/18 07:17 09/01/18 07:17 Labs: Abnormal Lab Results - Last 24 Hours (Table) 09/01/18 09/01/18 Range/Units 07:17 07:17 Hgb 11.0 L (11.4-16.0) gm/dL Chloride 109 H (98-107) mmol/L BUN 6 L (7-17) mg/dL Glucose 111 H (74-99) mg/dL ALT 64 H (9-52) U/L Assessment and Plan Plan: 1 acute severe abdominal pain: With acute biliary colic and possible ascending cholangitis, patient was admitted to the hospital continue levofloxacin continue hydration pain management and anti-medic medication. Liver enzymes improved. Patient is scheduled for cholecystectomy possibly today. Possible discharge home today post surgical intervention. 2 acute cholecystitis: Scheduled cholecystectomy 3 ascending cholangitis: Was started on levofloxacin. 4 hypertension: Resume lisinopril at 10 mg daily. 5 severe GERD/GI prophylaxis: Continue pantoprazole 40 mg daily. DVT prophylaxis: Patient will be on heparin 5000 units subcutaneous twice a day. CODE STATUS: Full code. Impression and plan of care have been directed as dictated by the signing physician. Cristina Lazar nurse practitioner acting as scribe for signing physician.
[2018-09-01] MEDS ORDERED: IV FLUID CONTINUATION 700 ML IV ONE ×2 (12:15)
--- NOTE | 2018-09-01 12:47 | P.OP ---
Date of Procedure: 09/01/18 Procedure(s) Performed: PREOPERATIVE DIAGNOSIS: Choledocholithiasis, chronic cholecystitis POSTOPERATIVE DIAGNOSIS: Same PROCEDURE: Laparoscopic cholecystectomy SURGEON: Muriel EBL: Minimal see anesthesia record ANESTHESIA: Gen. COMPLICATIONS: None OPERATIVE PROCEDURE: The patient was brought and placed on the operating room table in the supine position. The patient was placed under general anesthesia at that time. The abdomen was prepped and draped in the usual sterile fashion. A small vertical infraumbilical incision was made. The fascia was grasped with the Iqra forceps. The fascia was retracted anteriorly. The Veress needle was advanced into the peritoneal cavity. The saline drop test was normal. Insufflation took place up to 15 mmHg. A 5 mm optical trocar was advanced and the peritoneal cavity. 2 additional 5 mm trochars were placed in the right upper quadrant under direct visualization. A 12 mm trocar was advanced into the epigastric incision site. The gallbladder was retracted superiorly and laterally. The peritoneum overlying the infundibulum was bluntly dissected. The patient's cystic duct was visualized. The junction between the cystic duct common and hepatic duct was identified. The cystic duct was then divided after placement of 3 12 mm clips on the patient's side and one on the specimen side. The cystic artery was identified and clipped as well. A small vessel was seen along the gallbladder fossa and clipped as well. The gallbladder was then removed from the liver bed using electrocautery. The gallbladder was then removed from the epigastric trocar site with an Endo Catch bag. The gallbladder fossa was irrigated with saline. There was no evidence of any bleeding or biliary drainage seen. The fascia at the 12 millimeter site was closed using a Joce-Monica 0 Vicryl stitch. The trochars were then removed. The skin at all 4 sites was closed using a 4-0 Monocryl stitch. Skin glue was utilized on the incision sites. At the end of this procedure the sponge and needle counts were correct. The patient gallbladder was opened up. There was noted be small adherent cholesterol stones to the gallbladder wall. DISPOSITION: Stable to the recovery room
[2018-09-01] MEDS: LACTATED RINGERS 1,000 ML IV SCH (12:53)
[2018-09-01] MEDS: LEVOFLOXACIN 500MG-D5W PMX 500 MG in DEXTROSE/WATER 1 100ML.BAG IVPB SCH (13:49)
[2018-09-01] MEDS: LISINOPRIL 10 MG TAB PO SCH (20:01)
[2018-09-02] MEDS: HYDROmorphone 0.5 MG/0.5 ML SYRINGE IVP PRN (03:00)
[2018-09-02] MEDS: HYDROcodone/APAP 5-325MG 1 EACH TAB PO PRN ×3 (06:53→13:44)
[2018-09-02] MEDS: PANTOPRAZOLE 40 MG/10 ML VIAL IV SCH (08:34)
[2018-09-02] MEDS: HEPARIN SODIUM,PORCINE 5,000 UNIT/ML 1 ML VIAL SQ SCH (08:35)
[2018-09-02] MEDS: LACTATED RINGERS 1,000 ML IV SCH (08:45)
[2018-09-02 09:09] VITALS: BP 102/70; PULSE 72; TEMP 98
--- NOTE | 2018-09-02 11:43 | P.PN ---
Subjective Progress Note Date: 09/02/18 48-year-old female one of Dr. Lewis's patient with past medical history of asthma, hypertension, history of chronic gallbladder, history of GERD who presented to [facility] this morning with acute episode of midepigastric pain and right upper quadrant discomfort after she had couple of coffee in the morning become much worse was associated with nausea and vomiting her pain is radiating to the back. Patient is known to have chronic history of gallbladder and had seen Dr. pena in the past was planning to do elective surgery as an outpatient. A Chin ended up coming to [facility] department found to have significant elevated liver function tests and finding on ultrasound with possible polyp in the gallbladder versus stone with the possibility of ascending cholangitis as well. Patient was started on hydration, antiarrhythmic medication, levofloxacin IV to protect ascending cholangitis and was admitted to the hospital seen Dr. pena. The plan was if repeat liver function test in 24 hours shows improve symptoms patient might go for gallbladder surgery otherwise if worsening symptoms she might require to have an MRCP or ERCP to exclude any stone in the common duct or any obstruction might require further attention. 09/01: Patient is up in the room per self. Patient states that the discomfort has improved since yesterday. Liver enzymes have improved. Patient is scheduled for cholecystectomy possibly today. Patient is agreeable with the outlined plan. Patient still has some tenderness in the upper right quadrant. WC 6.5, hemoglobin 11, sodium 141, potassium 4.6, chloride 109, BUN 6, creatinine 0.68, bilirubin 0.5, AST 29, ALTs 64, a alkaline phosphatase 120 lipase 51. 09/02: Patient is postop day 1 from a cholecystectomy. Patient has minimal pain that is relieved with pain analgesic. Incision sites are clean and dry with no redness or induration noted patient is able to tolerate diet without any nausea or vomiting. Patient states that her pain never her and has resolved. Review of Systems CONSTITUTIONAL: Well-developed no acute respiratory distress. EYES: No icterus sclerae, no conjunctivitis. EARS, NOSE, MOUTH, THROAT, and FACE: No sore throat, lymphadenopathy, carotid bruits or deformity. RESPIRATORY: No SOB cough or wheezes. CARDIOVASCULAR: No CP, Palpitation, PND, Orthopnea, or angina. GASTROINTESTINAL: Denies abdominal pain no nausea and no vomiting GENITOURINARY: Negative for Hematuria or UTI, no kidney stones. INTEGUMENT/BREAST: Negative for any muscular injury with mild osteoarthritis.. HEMATOLOGIC/LYMPHATIC: Negative for bleed or purpura. MUSCULOSKELTAL: Negative for Myalgia or arthralgia. NEURLOGICAL: No LOC, Sz or syncope, blurred vision dizziness or abnormality.. BEHAVIORAL/PSYCH: Negative. ENDOCRINE: Negative. Objective - Vital Signs Vital signs: Vital Signs Temp 98.0 F 09/02/18 08:06 Pulse 72 09/02/18 08:06 Resp 16 09/02/18 08:06 BP 102/70 09/02/18 08:06 Pulse Ox 96 09/02/18 08:06 Intake & Output 09/01/18 09/02/18 09/02/18 18:59 06:59 18:59 Intake Total 700 480 240 Output Total 320 Balance 380 480 240 Intake: IV 700 Oral 480 240 Output: Urine 300 Estimated Blood Loss 20 Other: Voiding Method Toilet Toilet # Voids 1 3 - Exam General Appearance: Alert, cooperative, no distress, appears stated age. Neck HEENT: Supple, no lymphadenopathy, no thyroid enlargement, no carotid bruits. Lungs: Clear to auscultation without crackles or wheezes no rhonchi, no deformity. Chest Wall: Chest wall normal expansion with deep inspiration no tenderness and no deformity was found on exam, no costochondral pain or discomfort. Heart: Regular rate and rhythm, S1, S2 normal, no murmur, rub or gallop. Back: Symmetric, no curvature, ROM normal, no CVA tenderness. Abdomen: Soft tenderness around incisional sites, incision sites clean and dry no redness or induration noted bowel sounds present. Extremities: Extremities normal, atraumatic, no cyanosis or edema. Pulses: 2+ and symmetric. Skin: Skin color, texture, tugor normal, no rashes or lesions. Neurologic: Alert oriented x3 cranial nerves II through XII intact, no motor deficit, no abnormal balance or gait. - Labs CBC & Chem 7: 09/01/18 07:17 09/01/18 07:17 Assessment and Plan Plan: 1 acute severe abdominal pain: With acute biliary colic and possible ascending cholangitis, cholecystectomy completed yesterday. Postop day 1pain is managed with current analgesics, no nausea or vomiting. Possibly home today. 2 acute cholecystitis: Scheduled cholecystectomy 3 ascending cholangitis: Was started on levofloxacin. 4 hypertension: Resume lisinopril at 10 mg daily. 5 severe GERD/GI prophylaxis: Continue pantoprazole 40 mg daily. DVT prophylaxis: Patient will be on heparin 5000 units subcutaneous twice a day. CODE STATUS: Full code. Impression and plan of care have been directed as dictated by the signing physician. Cristina Lazar nurse practitioner acting as scribe for signing physician.
--- NOTE | 2018-09-02 12:17 | P.DS ---
Providers Date of admission: 09/01/18 15:08 Expected date of discharge: 09/02/18 Attending physician: Kush Llamas Consults: 08/31/18 10:28 Consult Physician Routine Consulting Provider: Esperanza Lewis Consult Reason/Comments: Medical management Do you want consulting provider notified?: Yes Primary care physician: Esperanza Lewis - Discharge Diagnosis(es) (1) Biliary colic Patient doing well today. She underwent laparoscopic cholecystectomy yesterday for suspected choledocholithiasis. The patient was found to have small stones within the gallbladder. Patient's pain is improved currently. She is tolerating diet. Plan will be discharged today with outpatient follow-up in 1 week. Prescription for [place] provided. Current Visit: Yes Status: Acute Plan - Discharge Summary Discharge Rx Participant: No New Discharge Prescriptions: New Hydrocodone/Acetaminophen [[place] 5-325] 1 tab PO Q6HR PRN 3 Days #10 tab PRN Reason: Pain HYDROcodone/APAP 5-325MG [[place] 5-325] 1 each PO Q4HR PRN tab PRN Reason: Pain Continue Ibuprofen [Motrin] 800 mg PO TID PRN PRN Reason: Pain Lisinopril [Zestril] 10 mg PO HS Discharge Medication List Ibuprofen [Motrin] 800 mg PO TID PRN 08/31/18 [History] Lisinopril [Zestril] 10 mg PO HS 08/31/18 [History] Hydrocodone/Acetaminophen [[place] 5-325] 1 tab PO Q6HR PRN 3 Days #10 tab [Rx] HYDROcodone/APAP 5-325MG [[place] 5-325] 1 each PO Q4HR PRN tab 09/02/18 [Rx] Follow up Appointment(s)/Referral(s): Kush Llamas MD [Medical Doctor] - 1 Week (CALL OFFICE ON MONDAY TO SCHEDULE APPOINTMENT, OFFICE CLOSED AT TIME OF DISCHARGE.) Esperanza Lewis MD [Primary Care Provider] - 1-2 days (CALL OFFICE ON MONDAY TO SCHEDULE APPOINTMENT, OFFICE CLOSED AT TIME OF DISCHARGE.) Patient Instructions/Handouts: Low Fiber Diet (DC), Laparoscopic Cholecystectomy (DC)
[2018-09-02] MEDS: LEVOFLOXACIN 500MG-D5W PMX 500 MG in DEXTROSE/WATER 1 100ML.BAG IVPB SCH (12:37)
== END 2018-09-02 14:43 | disposition home or self-care (01) | DRG 419 ==
LOC: EC 06:47 → 4SSUR 09:06 → OBSVTOIN 09-01 15:08
PROVIDERS: ADMIT Surgery; ATTEND Surgery
PROC: 0FT44ZZ Resection of Gallbladder, Percutaneous Endoscopic Approach (ICD-10-PCS; principal; 2018-09-01 10:00)
DX: K80.66 Calculus of gallbladder and bile duct with acute and chronic cholecystitis without obstruction (principal); I10 Essential (primary) hypertension; F41.9 Anxiety disorder, unspecified; K21.9 Gastro-esophageal reflux disease without esophagitis; J32.9 Chronic sinusitis, unspecified; J45.909 Unspecified asthma, uncomplicated; Z79.899 Other long term (current) drug therapy; Z98.51 Tubal ligation status; Z82.49 Family history of ischemic heart disease and other diseases of the circulatory system; Z83.79 Family history of other diseases of the digestive system
CPT/HCPCS: 36415; 76705; 80053; 81003; 82150; 83690; 85025; 88304; 96361; 96374; 96375; 99285

== ENCOUNTER → 2021-11-27 | Outpatient (CLI) | payer OTHER ==
[2021-11-27 12:36] LABS: Basophils # (A) 0.06 X 10*3/uL (0.00-0.10); Basophils % (A) 0.8 %; Eosinophils # (A) 0.16 X 10*3/uL (0.04-0.35); Eosinophils % (A) 2.2 %; HCT 37.6 % (37.2-46.3); HGB 12.1 g/dL (12.0-15.0); Immature Grans, Automated 0.3 %; Lymphocytes # (A) 2.23 X 10*3/uL (0.90-5.00); Lymphocytes % (A) 31.2 %; MCH 28.2 pg (27.0-32.0); MCHC 32.2 g/dL (32.0-37.0); MCV 87.6 fL (80.0-97.0); Mean Platelet Volume 10.9 fL (9.5-12.2); Monocytes # (A) 0.53 X 10*3/uL (0.20-1.00); Monocytes % (A) 7.4 %; NRBC Per 100 WBC 0 /100 WBCS (0.0-0.0); Neutrophils # (A) 4.15 X 10*3/uL (1.80-7.70); Neutrophils % (A) 58.1 %; Platelet Count 422 X 10*3/uL (140-440); RBC 4.29 X 10*6/uL (4.10-5.20); RDW 13.3 % (11.5-14.5); WBC 7.15 X 10*3/uL (4.50-10.00)
[2021-11-27 13:02] LABS: ALT 59 U/L (8-44); AST 26 U/L (13-35); African American GFR (CKD) 114.7 (60.0-200.0); Albumin 4.4 g/dL (3.8-4.9); Albumin/Globulin Ratio 1.51 (1.60-3.17); Alkaline Phosphatase 154 U/L (41-126); BUN/Creat Ratio 18.82 Ratio (12.00-20.00); Blood Urea Nitrogen 13.4 mg/dL (9.0-27.0); Calcium 9.4 mg/dL (8.7-10.3); Chloride 104 mmol/L (96-109); Chol/HDL Ratio 5.16 Ratio; Globulin 2.9 g/dL (1.6-3.3); Glucose 105 mg/dL (70-110); LDL Cholesterol,Calculated 156.6 mg/dL (0.0-131.0); Potassium 4.2 mmol/L (3.5-5.5); Sodium 140 mmol/L (135-145); Total Protein 7.4 g/dL (6.2-8.2)
== END | disposition home or self-care (01) ==
LOC: LABWHC1 08:26
PROVIDERS: ATTEND Family Medicine
DX: E78.5 Hyperlipidemia, unspecified (principal); E53.8 Deficiency of other specified B group vitamins; E55.9 Vitamin D deficiency, unspecified
CPT/HCPCS: 36415; 80053; 80061; 82306; 82607; 84443; 85025

== ENCOUNTER → 2023-04-27 | Outpatient (CLI) | payer OTHER ==
[2023-04-27 10:59] LABS: Basophils # (A) 0.09 X 10*3/uL (0.00-0.10); Eosinophils # (A) 0.26 X 10*3/uL (0.04-0.35); Eosinophils % (A) 2.9 %; HCT 38.4 % (37.2-46.3); HGB 12.6 d/dL (12.0-15.0); Lymphocytes # (A) 2.77 X 10*3/uL (0.90-5.00); Lymphocytes % (A) 31.4 %; MCH 28.8 pg (27.0-32.0); MCHC 32.8 d/dL (32.0-37.0); MCV 87.9 FL (80.0-97.0); Mean Platelet Volume 10.3 FL (9.5-12.2); Monocytes # (A) 0.59 X 10*3/uL (0.20-1.00); Monocytes % (A) 6.7 %; NRBC Per 100 WBC 0 X 10*3/uL (0.00-0.01); Neutrophils # (A) 5.09 X 10*3/uL (1.80-7.70); Neutrophils % (A) 57.8 %; Platelet Count 434 X 10*3/uL (140-440); RBC 4.37 X 10*6/uL (4.10-5.20); RDW 13.1 % (11.5-14.5); WBC 8.82 X 10*3/uL (4.50-10.00)
[2023-04-27 11:43] LABS: % Iron Saturation 26.45 (12.00-45.00); ALT 61 U/L (8-44); AST 23 U/L (13-35); Albumin 4.6 d/dL (3.8-4.9); Albumin/Globulin Ratio 1.77 Ratio (1.60-3.17); Alkaline Phosphatase 164 U/L (41-126); BUN/Creat Ratio 18.29 Ratio (12.00-20.00); Blood Urea Nitrogen 12.8 mg/dL (9.0-27.0); Calcium 9.8 mg/dL (8.7-10.3); Carbon Dioxide 24.8 mmol/L (21.6-31.8); Chloride 104 mmol/L (96-109); Chol/HDL Ratio 4.63 Ratio; Globulin 2.6 d/dL (1.6-3.3); Glucose 111 mg/dL (70-110); Iron 96 UG/DL (50-170); LDL Cholesterol,Calculated 132.3 mg/dL (0.0-131.0); Potassium 4.5 mmol/L (3.5-5.5); Sodium 140 mmol/L (135-145); Total Bilirubin 0.3 mg/dL (0.3-1.2); Total Iron Binding Capacity 363 UG/DL (228-460); Total Protein 7.2 d/dL (6.2-8.2)
== END | disposition home or self-care (01) ==
LOC: LABWHC1 08:13
PROVIDERS: ATTEND Family Medicine
DX: I10 Essential (primary) hypertension (principal); E78.5 Hyperlipidemia, unspecified; G47.00 Insomnia, unspecified; E53.8 Deficiency of other specified B group vitamins; E55.9 Vitamin D deficiency, unspecified; E61.1 Iron deficiency; F90.2 Attention-deficit hyperactivity disorder, combined type
CPT/HCPCS: 36415; 80053; 80061; 82306; 82607; 83540; 83550; 84443; 85025

== ENCOUNTER → 2023-05-29 | Outpatient (CLI) | payer OTHER ==
--- NOTE | 2023-05-29 10:17 | US ---
EXAMINATION TYPE: US abdomen complete DATE OF EXAM: 05/29/2023 COMPARISON: NONE CLINICAL INDICATION: Female, 53 years old with history of R10.9 ABD PAIN; lower abd pain and rt flank pain x 2-3 weeks TECHNIQUE: Multiple sonographic images of the abdomen are obtained. FINDINGS: EXAM MEASUREMENTS: Liver Length: 13.0 cm Gallbladder Wall: Surgically absent CBD: 0.5 cm Spleen: 8.8 cm Right Kidney: 10.8x4.6x4.4 cm Left Kidney: 10.8x4.5x4.4 cm [employer] NOTES: Pancreas: Tail obscured by overlying bowel gas Liver: increase echogenicity and attenuation Gallbladder: Surgically absent Evidence for sonographic Cole's sign: No CBD: wnl, post Cholecystectomy Spleen: wnl Right Kidney: wnl Left Kidney: wnl Upper IVC: wnl Abd Aorta: wnl exam slightly limited by bowel, body habitus, and rib shadowing The intrahepatic portion of the IVC and proximal abdominal aorta are within normal limits. Common bi le duct is unremarkable. The visualized portions of the pancreas are homogenous. The spleen is unre markable. Kidneys are symmetric and free of hydronephrosis. No renal lesions are seen. IMPRESSION: Hepatic steatosis noted. The gallbladder is surgically absent.
== END | disposition home or self-care (01) ==
LOC: RADUSWWP 09:33
PROVIDERS: ATTEND Internal Medicine Geriatric Medicine
DX: K76.0 Fatty (change of) liver, not elsewhere classified (principal); Z90.49 Acquired absence of other specified parts of digestive tract
CPT/HCPCS: 76700

== ENCOUNTER → 2023-09-13 | Outpatient (CLI) | payer OTHER ==
[2023-09-13 11:34] LABS: Basophils # (A) 0.08 X 10*3/uL (0.00-0.10); Eosinophils # (A) 0.21 X 10*3/uL (0.04-0.35); Eosinophils % (A) 2.5 %; HCT 37.7 % (37.2-46.3); HGB 12.4 g/dL (12.0-15.0); Lymphocytes # (A) 2.57 X 10*3/uL (0.90-5.00); Lymphocytes % (A) 30.8 %; MCHC 32.9 g/dL (32.0-37.0); MCV 88.3 FL (80.0-97.0); Mean Platelet Volume 10.4 FL (9.5-12.2); Monocytes # (A) 0.51 X 10*3/uL (0.20-1.00); Monocytes % (A) 6.1 %; NRBC Per 100 WBC 0 X 10*3/uL (0.00-0.01); Neutrophils # (A) 4.96 X 10*3/uL (1.80-7.70); Neutrophils % (A) 59.4 %; Platelet Count 432 X 10*3/uL (140-440); RBC 4.27 X 10*6/uL (4.10-5.20); RDW 13.3 % (11.5-14.5); WBC 8.35 X 10*3/uL (4.50-10.00)
[2023-09-13 12:02] LABS: ALT 50 U/L (8-44); AST 22 U/L (13-35); Albumin 4.4 g/dL (3.8-4.9); Albumin/Globulin Ratio 1.47 Ratio (1.60-3.17); Alkaline Phosphatase 143 U/L (41-126); BUN/Creat Ratio 20.29 Ratio (12.00-20.00); Blood Urea Nitrogen 14.2 mg/dL (9.0-27.0); Calcium 9.6 mg/dL (8.7-10.3); Carbon Dioxide 24.9 mmol/L (21.6-31.8); Chloride 105 mmol/L (96-109); Chol/HDL Ratio 4.82 Ratio; Glucose 109 mg/dL (70-110); Potassium 4.4 mmol/L (3.5-5.5); Sodium 142 mmol/L (135-145); Total Bilirubin 0.3 mg/dL (0.3-1.2); Total Protein 7.4 g/dL (6.2-8.2)
[2023-09-13 13:29] LABS: Hepatitis A Antibody IgM Nonreactive; Hepatitis B Core IgM Nonreactive; Hepatitis B Surface Antigen Nonreactive; Hepatitis C IgG Antibody Nonreactive
--- NOTE | 2023-09-14 09:32 | MM ---
Reason for Exam: Screening (asymptomatic). Last mammogram was performed 5 year(s) and 11 month(s) ago. Patient History: First Full-Term at age 18. Postmenopausal. Hormonal Contraceptives for 6 months from age 19 until age 19. Risk Values: Leeanne 5 year model risk: 0.7%. NCI Lifetime model risk: 5.8%. Prior Study Comparison: 10/11/2017 Bilateral Screening Mammogram, [facility]. Tissue Density: The breasts are heterogeneously dense, which may obscure small masses. Findings: Analyzed By CAD. Asymmetric density right breast seen above the level of the nipple on the right MLO view 3.8 cm from the nipple. Additional views are recommended. No suspicious calcifications within either breast. Overall Assessment: Incomplete: need additional imaging evaluation, BI-RAD 0 Management: Diagnostic Mammogram of the right breast. . Patient should continue monthly self-breast exams. A clinical breast exam by your physician is recommended on an annual basis. This exam should not preclude additional follow-up of suspicious palpable abnormalities. Note on Leeanne scores and lifetime risk: 1. A Leeanne score greater than 3% is considered moderate risk. If this is the case, consider specialist referral to assess eligibility for a risk reducing agent. 2. If overall lifetime risk for the development of breast cancer is 20% or higher, the patient may qualify for future screening with alternating mammogram and breast MRI. Electronically signed and approved by: Sergio Corrales M.D. Radiologis
== END | disposition home or self-care (01) ==
LOC: RADMAMWWP 06:58
PROVIDERS: ATTEND Family Medicine
DX: Z12.31 Encounter for screening mammogram for malignant neoplasm of breast (principal); Z00.01 Encounter for general adult medical examination with abnormal findings; I10 Essential (primary) hypertension; R73.01 Impaired fasting glucose; E78.5 Hyperlipidemia, unspecified; G47.00 Insomnia, unspecified
CPT/HCPCS: 36415; 77067; 80053; 80061; 80074; 83036; 84443; 85025

== ENCOUNTER → 2023-09-20 | Outpatient (CLI) | payer OTHER ==
--- NOTE | 2023-09-20 07:39 | MM ---
Reason for Exam: Additional evaluation requested from abnormal screening. Last screening mammogram was performed less than 1 month ago. Patient History: First Full-Term at age 18. Postmenopausal. Hormonal Contraceptives for 6 months from age 19 until age 19. Risk Values: Leeanne 5 year model risk: 0.7%. NCI Lifetime model risk: 5.8%. Tissue Density: Right: The breasts are heterogeneously dense, which may obscure small masses. Findings: Analyzed By CAD. On the spot 3-D CC view, there is a subtle 7 mm area of low density circumscribed nodularity which would favor a benign etiology such as a cyst. However, no persisting abnormality is clearly identified on the spot 3-D MLO or 3-D lateral views. Further ultrasound evaluation is recommended. Overall Assessment: Incomplete: need additional imaging evaluation, BI-RAD 0 Management: Diagnostic Breast Ultrasound of the right breast. Electronically signed and approved by: Anthony Farrar M.D. Radiologist
--- NOTE | 2023-09-20 08:31 | USB ---
Reason for Exam: Additional evaluation requested from abnormal screening. Patient History: First Full-Term at age 18. Postmenopausal. Hormonal Contraceptives for 6 months from age 19 until age 19. Risk Values: Leeanne 5 year model risk: 0.7%. NCI Lifetime model risk: 5.8%. Technique: Method: Whole Breast Handheld. Doppler: Color. Patient Position: Supine. Prior Study Comparison: 10/11/2017 Bilateral Screening Mammogram, [facility]. 09/13/2023 Bilateral MG screening mammo w CAD, [facility]. Findings: The whole breast of the right breast, the axilla of the right breast and the retroareolar of the right breast were scanned. A complete US of all four quadrants of the subareolar/periareolar breast and axilla region were reviewed. Dense tissue is present especially 11-12 o'clock. At the 11:00 position, 5 cm from the nipple, possible fat lobule embedded within an island of dense tissue measuring 1.7 x 1.1 x 0.7 cm. A focal lesion is considered less likely. Six-month follow-up recommended At the 9:00 position behind the nipple, an elongated hypoechoic circumscribed area measuring 1.8 x 2.0 x 0.6 cm, possible also prominent fat lobule embedded within dense tissue and less likely a true lesion. Six-month follow-up recommended. No other solid or cystic lesion or axillary lymphadenopathy. Overall Assessment: Probably benign, BI-RAD 3 Management: Diagnostic Mammogram of the right breast in 6 months. Diagnostic Breast Ultrasound of the right breast in 6 months. A clinical breast exam by your physician is recommended on an annual basis and results should be correlated with mammographic findings. This exam should not preclude additional follow-up of suspicious palpable abnormalities. Results were given to the patient verbally at the time of exam. Electronically signed and approved by: Anthony Farrar M.D. Radiologist
== END | disposition home or self-care (01) ==
LOC: RADMAMWWP 06:59
PROVIDERS: ATTEND Family Medicine
DX: R92.331 Mammographic heterogeneous density, right breast (principal); Z78.0 Asymptomatic menopausal state
CPT/HCPCS: 77061; 77065